=== PATIENT | male | born 1955 | race African-American/Black ===

== ENCOUNTER 2017-11-22 13:54 | Emergency (ER) | payer MEDICAID ==
[~2017-11-22] VITALS: Ht 170.2 cm; Wt 107.0 kg
[2017-11-22 13:59] VITALS: BP 128/93
== END 2017-11-22 18:21 | disposition home or self-care (01) ==
LOC: ER 14:32
DX: H61.23 Impacted cerumen, bilateral (principal); F12.10 Cannabis abuse, uncomplicated; Z87.828 Personal history of other (healed) physical injury and trauma; Z98.890 Other specified postprocedural states
CPT/HCPCS: 69209; 99282

== ENCOUNTER 2019-03-19 11:46 | Emergency (ER) | payer MEDICAID ==
[~2019-03-19] VITALS: Ht 180.3 cm; Wt 101.0 kg
[2019-03-19 12:50] VITALS: BP 138/71
== END 2019-03-19 12:55 | disposition home or self-care (01) ==
LOC: ER 11:53
DX: H00.014 Hordeolum externum left upper eyelid (principal)
CPT/HCPCS: 99283

== ENCOUNTER 2023-06-10 22:37 | Emergency (ER) | payer MEDICAID ==
[~2023-06-10] VITALS: Ht 180.3 cm; Wt 105.8 kg
[2023-06-10 23:00] VITALS: TEMP 98.1
[2023-06-10] MEDS ORDERED: ACETAMINOPHEN 325MG TABLET PO ONE (23:15)
[2023-06-11] MEDS ORDERED: KETOROLAC 30MG/ML VIAL IM ONE (02:45)
[2023-06-11 02:48] VITALS: BP 145/109; PULSE 16; RESP 18
[2023-06-11] MEDS ORDERED: ACETAMINOPHEN 325MG TABLET PO NR (03:15)
[2023-06-11] MEDS ORDERED: TOPUD MT (04:10)
[2023-06-11] MEDS ORDERED: NAPR-679 MT (04:10)
[2023-06-11] MEDS ORDERED: LIDO700A15 TP (04:10)
== END 2023-06-11 04:51 | disposition home or self-care (01) ==
LOC: ER 22:37
DX: R51.9 Headache, unspecified (principal); I25.2 Old myocardial infarction; I10 Essential (primary) hypertension; F12.90 Cannabis use, unspecified, uncomplicated
CPT/HCPCS: 99285; 70450; 96372; J1885